=== PATIENT | male | born 1975 | race Caucasian/White ===

== ENCOUNTER 2020-11-02 19:34 | Emergency (ER) | payer OTHER, SELFPAY ==
[2020-11-02 19:35] VITALS: BP 121/82; PULSE 63; RESP 15; TEMP 36.4; O2SAT 97; BMI 26.5
--- NOTE | 2020-11-02 19:43 | CT_ITS ---
HISTORY: Flank pain EXAMINATION: CT Abdomen And Pelvis W/O Contrast Injection TECHNIQUE: Multiple axial images were obtained of the abdomen and pelvis without oral or IV contrast. A radiation dose optimization technique was used for this scan. IV Contrast dosage and agent: None. Oral contrast: None. COMPARISON: None FINDINGS: LOWER CHEST: Bibasilar dependent changes. No cardiomegaly or pericardial effusion. LIVER: Homogeneous. No focal mass. GALLBLADDER AND BILIARY TREE: No calcified gallstones. No gallbladder distension or wall edema. No intra- or extrahepatic biliary ductal dilation. PANCREAS: No focal cystic or solid mass. SPLEEN: Normal size without focal cystic or solid mass. ADRENAL GLANDS: No nodules. KIDNEYS AND URETERS: No nephrolithiasis. Left hydroureteronephrosis with 4 mm calculus in the distal left ureter 3 cm proximal to the UVJ. PERITONEUM: No ascites or free air. BOWEL: Normal appendix. No stomach or bowel distension. No focal inflammatory bowel wall changes. LYMPH NODES: No enlarged mesenteric or retroperitoneal lymph nodes. VESSELS: Aorta is non-dilated. URINARY BLADDER: Unremarkable. REPRODUCTIVE ORGANS: No pelvic masses. ABDOMINAL WALL: Small fat-containing umbilical hernia. BONES: No acute or aggressive abnormality. CT/Abdomen/Pelvis without Cont IMPRESSION: 4 mm partially obstructing distal left ureteral calculus. Individualized dose optimization techniques were used for this CT. at 2043 Reported and signed by: Tereso Lane MD Electronically Signed: Tereso Lane MD at 20:41 EDT Tel , Service support ,
--- NOTE | 2020-11-02 19:43 | EDS_ITS ---
HPI History of Present Illness Chief Complaint: Flank Pain Informant: patient and spouse/S.O. Narrative Narrative: 44-year-old male presents to the emergency department with sudden onset of flank pain this morning. He states he originally got up and urinated blood. He states that he developed a pain in the left lower abdomen rating to the flank. It was bearable until this evening when it became severe. He notes now he is having testicular pain. No clots in the urine. He notes nausea when the pain was severe. He has a strong family history of ureterolithiasis. PFSH PFSH no medical history Home Medications hydrocodone-acetaminophen 1 tab PO Q6H PRN PRN 3 Days #12 tablet 11/02/20 [Rx Last Taken Unknown] ketorolac 10 mg PO Q8H PRN 3 Days #9 tab 11/02/20 [Rx Last Taken Unknown] ondansetron 4 mg PO Q6H PRN PRN #10 tab 11/02/20 [Rx Last Taken Unknown] tamsulosin [Flomax] 0.4 mg PO QHS #7 cap 11/02/20 [Rx Last Taken Unknown] Allergy/AdvReac Type Severity Reaction Status Date / Time No Known Allergies Allergy Verified 11/02/20 19:34 Surgical History (Updated 11/02/20 @ 19:53 by Marquita Serrano) History of Achilles tendon repair no surgical history Social History (Updated 11/02/20 @ 19:[address] Elton Olea, ) Smoking Status: Never smoker substance use type: does not use ROS ROS ED Constitutional Constitutional ED: Denies chills or weight loss Eyes Eyes: Denies change in vision or diplopia ENT ENT ED: Denies ear pain, rhinorrhea or sore throat Cardiovascular Cardiovascular: Denies chest pain, orthopnea, palpitations or racing heartbeat Respiratory/Chest Respiratory/Chest: Denies cough, dyspnea or orthopnea Gastrointestinal Gastrointestinal: Reports abdominal pain and nausea; Denies diarrhea or vomiting Genitourinary Genitourinary ED: Reports hematuria and other Details: Testicular pain ; Denies dysuria or urinary frequency Musculoskeletal Musculoskeletal: Denies arthralgias or myalgias Integumentary Denies abscess or rash Neurologic Neurologic: Denies headache(s) or weakness Psychiatric Psychiatric: Denies anxiety, depression, suicidal ideation or suicidal thoughts Endocrine Endocrinology: Denies polydipsia, polyphagia or polyuria Allergic/Immunologic Allergic/Immunologic ED: Denies mouth swelling, tongue swelling or urticaria EXAM Physical Exam Const Vital Signs: 11/02/20 19:35 Temperature 97.6 F L Temperature Source Temporal Pulse Rate 63 Respiratory Rate 15 Blood Pressure 121/82 H Blood Pressure Mean 95 Pulse Ox 97 Oxygen Delivery Method Room Air Positive well nourished and well developed General Appearance ED: well developed HEENT Reports normocephalic, head/scalp atraumatic and moist mucous membranes Eyes PERRL and EOMs intact bilaterally Neck no lymphadenopathy, supple and no JVD Resp normal respiratory effort and clear to auscultation bilaterally Cardio regular rate, regular rhythm and no murmurs GI normal to inspection, nondistended, normoactive bowel sounds and non-tender Palpation: soft Back/Spine no CVA tenderness and normal ROM Extremity normal to inspection General Extremety ED: Negative for edema General Extremity: Negative for edema Neuro oriented x3 and CN's II-XII intact bilaterally Sensorium / Orientation: alert Motor Exam: strength 5/5 throughout Psych mental status grossly normal Mood & Affect: Negative for depressed or tearful Skin no rashes or lesions noted and no wounds MDM MDM MDM Narrative Medical decision making narrative: Patient received Toradol Zofran and fluids. White count 4.3 creatinine normal. Urinalysis shows no obvious infection. CT of the pelvis demonstrates a 4 mm distal ureteral stone on the left. Patient will be discharged home with pain and nausea medications. Instructions to return if worsening to follow-up with urology Lab Data Attestation: I reviewed the patient's lab results. Labs: Laboratory Results - last 24 hr 11/02/20 11/02/20 11/02/20 19:45 19:45 20:35 WBC 4.3 L RBC 4.77 Hgb 14.7 Hct 42.5 MCV 89.1 MCH 30.8 MCHC 34.6 RDW Std Deviation 38.7 RDW Coeff of Justyna 11.9 Plt Count 180 MPV 8.8 Immature Gran % (Auto) 0.500 Neut % (Auto) 57.3 Lymph % (Auto) 32.7 [place] % (Auto) 6.7 Eos % (Auto) 2.3 Baso % (Auto) 0.5 Absolute Neuts (auto) 2.5 Absolute Lymphs (auto) 1.41 Nucleated RBC % 0 Sodium 141 Potassium 3.5 Chloride 106 Carbon Dioxide 29.0 Anion Gap 6 BUN 16 Creatinine 0.92 Estim Creat Clear Calc 103.59 Est GFR (MDRD) Af Amer 114 Est GFR (MDRD) Non-Af 94 BUN/Creatinine Ratio 17.5 Glucose 130 H Calcium 8.8 Urine Color Yellow Urine Clarity Sl. Cloudy Urine pH 6.0 Ur Specific [place] 1.025 Urine Protein Negative Urine Glucose (UA) Normal Urine Ketones Negative Urine Occult Blood 50 H Urine Nitrite Negative Urine Bilirubin Negative Urine Urobilinogen Normal Ur Leukocyte Esterase Negative Urine RBC 0-5 SEEN Urine WBC 0 SEEN Ur Squamous Epith Cells 0-5 SEEN Urine Bacteria 0 SEEN Urine Mucus 0 SEEN Radiography Diagnostic Testing: Radiology Impression Abdomen/Pelvis CT 11/02/20 19:43 IMPRESSION: 4 mm partially obstructing distal left ureteral calculus. Individualized dose optimization techniques were used for this CT. at 2043 Reported and signed by: Tereso Lane MD Electronically Signed: Tereso Lane MD at 20:41 EDT Tel , Service support , Discharge Plan Triage Chief Complaint: Flank Pain ED Provider: Elton Olea Dx/Rx/DC Orders Clinical Impression: Ureterolithiasis, Abdominal pain, acute Instructions: ED Kidney Stone w/ Colic Prescriptions: New hydrocodone-acetaminophen [hydrocodone-acetaminophen] 1 TABLET tablet 1 tab PO Q6H PRN PRN (Reason: Pain) 3 Days Qty: 12 RF: 0 ondansetron [ondansetron] 4 MG tablet 4 mg PO Q6H PRN PRN (Reason: Nausea) Qty: 10 RF: 0 ketorolac 10 mg tablet 10 mg PO Q8H PRN (Reason: pain) 3 Days Qty: 9 RF: 0 tamsulosin [Flomax] 0.4 mg capsule 0.4 mg PO QHS Qty: 7 RF: 0 Primary Care Provider: Ar Evans Referrals: Ar Evans MD [Primary Care Provider] - Timothy Roper MD [STAFF PHYSICIAN] - 1 Week Disposition Disposition: Home, self care
[2020-11-02] MEDS: Ketorolac 30 MG/ML Syringe IV (19:50)
[2020-11-02] MEDS: Ondansetron 4 MG/2 ML Vial IV (19:50)
[2020-11-02] MEDS: 0.9% Normal Saline 1,000 ML 250 ML IV (19:50)
[2020-11-02 20:01] LABS: Absolute Lymphocyte Count 1.41 X10^3/uL (0.83-4.51); Absolute Neutrophil Count 2.5 X10^3/uL (2.0-7.7); Basophil# 0.02 X10^3/uL; Basophil% 0.5 % (0-1); Eosinophils% 2.3 % (0-5); Hematocrit 42.5 % (40-54); Hemoglobin 14.7 g/dL (13.0-16.5); Lymphocyte # 1.41 X10^3/ul (0.83-4.51); Lymphocyte % 32.7 % (19-41); Mean Corp Hgb Conc 34.6 g/dL (32-36); Mean Corpuscular Hgb 30.8 pg (27.0-32.0); Mean Corpuscular Volume 89.1 fL (80-94); Mean Platelet Vol. 8.8 fl (6.2-12.0); Monocyte# 0.29 X10^3/uL; Monocyte% 6.7 % (0-10); NRBC Flagged by Analyzer 0 % (0-5); Neutrophil # 2.47 X10^3/uL (2.7-7.7); Neutrophil % 57.3 % (47-70); Platelet Count 180 K/mm3 (150-450); RBC Distribution Width CV 11.9 % (11.6-14.6); RBC Distribution Width SD 38.7 fl (35.1-43.9); Red Blood Count 4.77 M/mm3 (4.6-6.2); White Blood Count 4.3 K/mm3 (4.4-11.0)
[2020-11-02 20:15] LABS: Anion Gap 6 (5-15); BUN 16 mg/dL (7-18); BUN/Creat Ratio 17.5 RATIO (10-20); Calcium,Total 8.8 mg/dL (8.5-10.1); Chloride 106 mmol/L (98-107); Creatinine, Serum 0.92 mg/dL (0.70-1.30); EST Glomerular Filtration Rate 94 mL/min (>60); Est Glom Filt Rate - Afr Amer 114 mL/min (>60); Estimated Creatinine Clearance 103.59 ml/min; Glucose 130 mg/dL (74-106); Potassium 3.5 mmol/L (3.5-5.1); Sodium Level 141 mmol/L (136-145)
[2020-11-02 20:41] LABS: Bacteria 0 SEEN /hpf (None Seen); Mucous, Urine 0 SEEN /hpf (<or=2+); White Blood Cells 0 SEEN /hpf (0-5)
[2020-11-02 20:43] LABS: Color, Urine Yellow (Yellow); Glucose, Dipstick Normal (Normal); Ketone-Dipstick Negative (Negative); Leukocyte Esterase-Dipstick Negative /ul (Negative); Nitrite-Dipstick Negative (Negative); Occult Blood-Urine 50 /ul (Negative); Protein-Dipstick Negative (Negative); Specific Gravity, Urine 1.025 (1.002-1.030); Urine Bilirubin Dipstick Negative (Negative); Urine Clarity Sl. Cloudy (Clear); Urine Urobilinogen Normal (Normal)
[2020-11-02 20:55] LABS: Red Blood Cells-Urine 0-5 SEEN /hpf (0-5); Squamous Epithelial Cells - UA 0-5 SEEN /hpf (0-5)
[2020-11-02 21:22] VITALS: BP 107/73; PULSE 56; RESP 16
== END 2020-11-02 21:56 | disposition home or self-care (01) ==
PROVIDERS: Emergency Provider Emergency Medicine; PCP Family Medicine
DX: N20.1 Calculus of ureter (principal)
CPT/HCPCS: 74176; 80048; 81001; 85025; 96361; 96374; 96375; 99283; J2405

== ENCOUNTER 2020-11-06 21:00 | Emergency (ER) | payer OTHER, SELFPAY ==
[2020-11-06 21:00] VITALS: BP 150/90; PULSE 59; RESP 16; TEMP 36.6; O2SAT 98; BMI 26.5
--- NOTE | 2020-11-06 21:10 | EX.ED.DYSGE1 ---
HPI History of Present Illness Chief Complaint: Flank Pain Informant: patient Onset/Context/Timing Onset: Days Context: Gradual Onset Timing: Waxes and wanes Current Severity: Severe Maximum Severity: Severe Narrative Narrative: Patient presents secondary to kidney stone pain. He was diagnosed with a 4 mm distal left ureter stone on Monday. Patient states he has had pain off and on throughout the week but worsened this evening after work. PFSH PFSH Medical History Kidney stones Non-smoker Home Medications hydrocodone-acetaminophen 1 tab PO Q6H PRN PRN 3 Days #12 tablet 11/02/20 [Rx Last Taken Unknown] ketorolac 10 mg PO Q8H PRN 3 Days #9 tab 11/02/20 [Rx Last Taken Unknown] ondansetron 4 mg PO Q6H PRN PRN #10 tab 11/02/20 [Rx Last Taken Unknown] tamsulosin [Flomax] 0.4 mg PO QHS #7 cap 11/02/20 [Rx Last Taken Unknown] hydrocodone-acetaminophen 1 tab PO Q6H PRN 3 Days #14 tab 11/06/20 [Rx Last Taken Unknown] ketorolac 10 mg PO Q8H PRN #14 tab 11/06/20 [Rx Last Taken Unknown] Allergy/AdvReac Type Severity Reaction Status Date / Time No Known Allergies Allergy Verified 11/06/20 21:02 Surgical History (Updated 11/02/20 @ 19:53 by Marquita Serrano) History of Achilles tendon repair no surgical history Social History Smoking Status: Never smoker substance use type: does not use ROS ROS ED Constitutional Constitutional ED: Denies chills or fever(s) Eyes Eyes: Denies change in vision ENT ENT ED: Denies sore throat Cardiovascular Cardiovascular: Denies chest pain Respiratory/Chest Respiratory/Chest: Denies cough or dyspnea Gastrointestinal Gastrointestinal: Reports abdominal pain; Denies diarrhea, nausea or vomiting Genitourinary Genitourinary ED: Denies dysuria Musculoskeletal Musculoskeletal: Denies back pain Integumentary Denies rash Neurologic Neurologic: Denies headache(s) or weakness Psychiatric Psychiatric: Denies anxiety or depression Endocrine Endocrinology: Denies polydipsia or polyuria Allergic/Immunologic Allergic/Immunologic ED: Denies urticaria EXAM Physical Exam Const Vital Signs: 11/06/20 21:00 11/06/20 22:51 11/06/20 23:04 Temperature 97.8 F 97.8 F Temperature Source Temporal Oral Pulse Rate 59 L 48 L 53 L Respiratory Rate 16 16 17 Blood Pressure 150/90 H 121/85 H 126/84 H Blood Pressure Mean 110 97 Pulse Ox 98 98 98 Oxygen Delivery Method Room Air Room Air 11/06/20 23:05 Temperature Temperature Source Pulse Rate 53 L Respiratory Rate 17 Blood Pressure 126/84 H Blood Pressure Mean 98 Pulse Ox 97 Oxygen Delivery Method Room Air Positive well nourished and well developed General Appearance ED: well developed HEENT Reports normocephalic and head/scalp atraumatic Eyes PERRL and EOMs intact bilaterally Neck supple Chest Wall inspection of chest normal and palpation of chest normal Resp normal respiratory effort and clear to auscultation bilaterally Cardio regular rate and regular rhythm GI Auscultation: hypoactive bowel sounds Palpation: soft and tender LLQ; Negative for guarding or rebound tenderness present Extremity normal to inspection Neuro oriented x3 and no sensory deficits noted Sensorium / Orientation: alert Motor Exam: strength 5/5 throughout Psych mental status grossly normal Skin no rashes or lesions noted MDM MDM MDM Narrative Medical decision making narrative: IV was established. BMP is obtained. Patient is given morphine, Toradol, Zofran, and IV fluids. Lab Data Attestation: I reviewed the patient's lab results. Labs: Laboratory Results - last 24 hr 11/06/20 21:10 Sodium 140 Potassium 3.4 L Chloride 106 Carbon Dioxide 28.0 Anion Gap 6 BUN 20 H Creatinine 1.29 Estim Creat Clear Calc 73.88 Est GFR (MDRD) Af Amer 77 Est GFR (MDRD) Non-Af 64 BUN/Creatinine Ratio 15.5 Glucose 108 H Calcium 8.9 Treatment and Re-Evaluation Comments:: Renal function is still within normal limits. I did review the CT scan from several days ago that revealed a 4 mm distal left ureter stone. On repeat evaluation patient's pain is much improved. He does feel comfortable going home. He only has a few tabs of pain medication left and will be given new prescriptions. He is encouraged to follow-up with Dr. Roper as soon as possible if pain does not subside this weekend. He is given return instructions. Discharge Plan Triage Chief Complaint: Flank Pain ED Provider: Maday Dumont Dx/Rx/DC Orders Clinical Impression: Ureterolithiasis Instructions: ED Kidney Stone w/ Colic Prescriptions: New ketorolac 10 mg tablet 10 mg PO Q8H PRN (Reason: pain) Qty: 14 RF: 0 hydrocodone-acetaminophen 5-325 mg tablet 1 tab PO Q6H PRN (Reason: pain) 3 Days Qty: 14 RF: 0 No Action hydrocodone-acetaminophen [hydrocodone-acetaminophen] 1 TABLET tablet 1 tab PO Q6H PRN PRN (Reason: Pain) 3 Days Qty: 12 RF: 0 ondansetron [ondansetron] 4 MG tablet 4 mg PO Q6H PRN PRN (Reason: Nausea) Qty: 10 RF: 0 ketorolac 10 mg tablet 10 mg PO Q8H PRN (Reason: pain) 3 Days Qty: 9 RF: 0 tamsulosin [Flomax] 0.4 mg capsule 0.4 mg PO QHS Qty: 7 RF: 0 Primary Care Provider: Ar Evans Referrals: Ar Evans MD [Primary Care Provider] - Disposition Disposition: Home, self care Discharge Date/Time: 11/06/20 23:14
[2020-11-06] MEDS: Morphine 4 MG/ML Syringe IV ×2 (21:20→23:08)
[2020-11-06] MEDS: 0.9% Normal Saline 1,000 ML 150 ML IV (21:21)
[2020-11-06] MEDS: Ondansetron 4 MG/2 ML Vial IV (21:21)
[2020-11-06] MEDS: Ketorolac 30 MG/ML Syringe IV (21:21)
[2020-11-06 21:33] LABS: Anion Gap 6 (5-15); BUN 20 mg/dL (7-18); BUN/Creat Ratio 15.5 RATIO (10-20); Calcium,Total 8.9 mg/dL (8.5-10.1); Chloride 106 mmol/L (98-107); Creatinine, Serum 1.29 mg/dL (0.70-1.30); EST Glomerular Filtration Rate 64 mL/min (>60); Est Glom Filt Rate - Afr Amer 77 mL/min (>60); Estimated Creatinine Clearance 73.88 ml/min; Glucose 108 mg/dL (74-106); Potassium 3.4 mmol/L (3.5-5.1); Sodium Level 140 mmol/L (136-145)
[2020-11-06 22:51] VITALS: BP 121/85; PULSE 48; RESP 16; TEMP 36.6; O2SAT 98
[2020-11-06 23:04] VITALS: BP 126/84; PULSE 53; RESP 17; O2SAT 98
[2020-11-06 23:05] VITALS: BP 126/84; PULSE 53; RESP 17; O2SAT 97
== END 2020-11-06 23:14 | disposition home or self-care (01) ==
PROVIDERS: Emergency Provider Emergency Medicine; PCP Family Medicine
DX: N20.1 Calculus of ureter (principal); Z87.442 Personal history of urinary calculi
CPT/HCPCS: 80048; 96361; 96374; 96375; 96376; 99283; J7030; A4216; J2405

== ENCOUNTER 2020-11-09 13:06 | Emergency (ER) | payer OTHER, SELFPAY ==
[2020-11-09 13:07] VITALS: BP 150/72; PULSE 71; RESP 22; TEMP 36.6; O2SAT 98; BMI 26.5
--- NOTE | 2020-11-09 13:20 | EX.ED.DYSGE1 ---
HPI History of Present Illness Chief Complaint: Flank Pain Informant: patient and spouse/S.O. Narrative Narrative: 44-year-old male was previously diagnosed with a distal 4 mm ureteral stone on the left on 02 September. He returned to the emergency department on 06 September. He states that pretty much since last ED visit he has had pain. He has been taking Flomax in addition to Toradol and [place]. He has an appointment today to see Dr. Roper. [facility] Medical History Kidney stones Non-smoker Home Medications hydrocodone-acetaminophen 1 tab PO Q6H PRN PRN 3 Days #12 tablet 11/02/20 [Rx Last Taken Unknown] ketorolac 10 mg PO Q8H PRN 3 Days #9 tab 11/02/20 [Rx Last Taken Unknown] ondansetron 4 mg PO Q6H PRN PRN #10 tab 11/02/20 [Rx Last Taken Unknown] tamsulosin [Flomax] 0.4 mg PO QHS #7 cap 11/02/20 [Rx Last Taken Unknown] docusate sodium [Colace] 100 mg PO BID #14 cap 11/09/20 [Rx Last Taken Unknown] hydrocodone-acetaminophen 1 tab PO Q6H PRN PRN 3 Days #12 tablet 11/09/20 [Rx Last Taken Unknown] tamsulosin 0.4 mg PO DAILY #7 capsule 11/09/20 [Rx Last Taken Unknown] Allergy/AdvReac Type Severity Reaction Status Date / Time No Known Allergies Allergy Verified 11/09/20 13:09 Surgical History History of Achilles tendon repair Social History Smoking Status: Never smoker substance use type: does not use ROS ROS ED Constitutional Constitutional ED: Denies chills or weight loss Eyes Eyes: Denies change in vision or diplopia ENT ENT ED: Denies ear pain, rhinorrhea or sore throat Cardiovascular Cardiovascular: Denies chest pain, orthopnea, palpitations or racing heartbeat Respiratory/Chest Respiratory/Chest: Denies cough, dyspnea or orthopnea Gastrointestinal Gastrointestinal: Denies abdominal pain, diarrhea, nausea or vomiting Genitourinary Genitourinary ED: Reports hematuria and other Details: Flank pain ; Denies dysuria or urinary frequency Musculoskeletal Musculoskeletal: Denies arthralgias or myalgias Integumentary Denies abscess or rash Neurologic Neurologic: Denies headache(s) or weakness Psychiatric Psychiatric: Denies anxiety, depression, suicidal ideation or suicidal thoughts Endocrine Endocrinology: Denies polydipsia, polyphagia or polyuria Allergic/Immunologic Allergic/Immunologic ED: Denies mouth swelling, tongue swelling or urticaria EXAM Physical Exam Narrative Exam Narrative: Patient is Const Vital Signs: 11/09/20 13:07 Temperature 97.9 F Temperature Source Temporal Pulse Rate 71 Respiratory Rate 22 H Blood Pressure 150/72 H Blood Pressure Mean 98 Pulse Ox 98 Oxygen Delivery Method Room Air Positive well nourished and well developed General Appearance ED: well developed HEENT Reports normocephalic, head/scalp atraumatic and moist mucous membranes Eyes PERRL and EOMs intact bilaterally Neck no lymphadenopathy, supple and no JVD Resp normal respiratory effort and clear to auscultation bilaterally Cardio regular rate, regular rhythm and no murmurs GI normal to inspection, nondistended, normoactive bowel sounds and non-tender Palpation: soft Back/Spine normal ROM Back/Spine Narrative: CVA tenderness Thoracic Spine / Upper Back: Negative for thoracic spinal tenderness Lumbar Spine / Lower Back: Negative for lumbar spinal tenderness Extremity normal to inspection General Extremety ED: Negative for edema General Extremity: Negative for edema Neuro oriented x3 and CN's II-XII intact bilaterally Sensorium / Orientation: alert Motor Exam: strength 5/5 throughout Psych mental status grossly normal Mood & Affect: Negative for depressed or tearful Skin no rashes or lesions noted and no wounds MDM MDM MDM Narrative Medical decision making narrative: Patient received Toradol and morphine and IV fluids. I spoke with Dr. Roper who came to the emergency department to evaluate the patient. He will be scheduled for surgery on Monday. EKG and Covid PCR will be obtained to help assist in that process. Once his pain is under control I will write for additional pain medication at home. Also write for stool softener and some additional Flomax. Lab Data Attestation: I reviewed the patient's lab results. Labs: Laboratory Results - last 24 hr 11/09/20 11/09/20 13:49 13:49 WBC 5.2 RBC 4.31 L Hgb 13.5 Hct 38.1 L MCV 88.4 MCH 31.3 MCHC 35.4 RDW Std Deviation 38.4 RDW Coeff of Justyna 11.9 Plt Count 172 MPV 8.7 Immature Gran % (Auto) 0.400 Neut % (Auto) 75.3 H Lymph % (Auto) 17.9 L [place] % (Auto) 5.4 Eos % (Auto) 0.8 Baso % (Auto) 0.2 Absolute Neuts (auto) 3.9 Absolute Lymphs (auto) 0.93 Nucleated RBC % 0 Sodium 144 Potassium 3.2 L Chloride 107 Carbon Dioxide 27.0 Anion Gap 10 BUN 15 Creatinine 1.08 Estim Creat Clear Calc 88.25 Est GFR (MDRD) Af Amer 94 Est GFR (MDRD) Non-Af 78 BUN/Creatinine Ratio 13.9 Glucose 106 Calcium 8.9 EKG Initial EKG: Attestation: I personally reviewed and interpreted this EKG as follows: Comments: EKG demonstrates a sinus bradycardia at a rate of 55. Discharge Plan Triage Chief Complaint: Flank Pain ED Provider: Elton Olea Dx/Rx/DC Orders Clinical Impression: Ureterolithiasis, Abdominal pain, acute Prescriptions: New hydrocodone-acetaminophen [hydrocodone-acetaminophen] 1 TABLET tablet 1 tab PO Q6H PRN PRN (Reason: Pain) 3 Days Qty: 12 RF: 0 tamsulosin [tamsulosin] 0.4 MG capsule 0.4 mg PO DAILY Qty: 7 RF: 0 docusate sodium [Colace] 100 mg capsule 100 mg PO BID Qty: 14 RF: 0 No Action hydrocodone-acetaminophen [hydrocodone-acetaminophen] 1 TABLET tablet 1 tab PO Q6H PRN PRN (Reason: Pain) 3 Days Qty: 12 RF: 0 ondansetron [ondansetron] 4 MG tablet 4 mg PO Q6H PRN PRN (Reason: Nausea) Qty: 10 RF: 0 ketorolac 10 mg tablet 10 mg PO Q8H PRN (Reason: pain) 3 Days Qty: 9 RF: 0 tamsulosin [Flomax] 0.4 mg capsule 0.4 mg PO QHS Qty: 7 RF: 0 Primary Care Provider: Ar Evans Referrals: Ar Evans MD [Primary Care Provider] - Timothy Roper MD [STAFF PHYSICIAN] - Keep [facility] appointment Disposition Disposition: Home, self care
[2020-11-09] MEDS: Ondansetron 4 MG/2 ML Vial IV (13:39)
[2020-11-09] MEDS: Morphine 4 MG/ML Syringe IV (13:40)
[2020-11-09] MEDS: Ketorolac 30 MG/ML Syringe IV (13:40)
[2020-11-09] MEDS: 0.9% Normal Saline 1,000 ML 250 ML IV (13:41)
[2020-11-09 13:57] LABS: Absolute Lymphocyte Count 0.93 X10^3/uL (0.83-4.51); Absolute Neutrophil Count 3.9 X10^3/uL (2.0-7.7); Basophil# 0.01 X10^3/uL; Basophil% 0.2 % (0-1); Eosinophil# 0.04 X10^3/uL; Eosinophils% 0.8 % (0-5); Hematocrit 38.1 % (40-54); Hemoglobin 13.5 g/dL (13.0-16.5); Lymphocyte # 0.93 X10^3/ul (0.83-4.51); Lymphocyte % 17.9 % (19-41); Mean Corp Hgb Conc 35.4 g/dL (32-36); Mean Corpuscular Hgb 31.3 pg (27.0-32.0); Mean Corpuscular Volume 88.4 fL (80-94); Mean Platelet Vol. 8.7 fl (6.2-12.0); Monocyte# 0.28 X10^3/uL; Monocyte% 5.4 % (0-10); NRBC Flagged by Analyzer 0 % (0-5); Neutrophil # 3.91 X10^3/uL (2.7-7.7); Neutrophil % 75.3 % (47-70); Platelet Count 172 K/mm3 (150-450); RBC Distribution Width CV 11.9 % (11.6-14.6); RBC Distribution Width SD 38.4 fl (35.1-43.9); Red Blood Count 4.31 M/mm3 (4.6-6.2); White Blood Count 5.2 K/mm3 (4.4-11.0)
[2020-11-09 14:07] LABS: Anion Gap 10 (5-15); BUN 15 mg/dL (7-18); BUN/Creat Ratio 13.9 RATIO (10-20); Calcium,Total 8.9 mg/dL (8.5-10.1); Chloride 107 mmol/L (98-107); Creatinine, Serum 1.08 mg/dL (0.70-1.30); EST Glomerular Filtration Rate 78 mL/min (>60); Est Glom Filt Rate - Afr Amer 94 mL/min (>60); Estimated Creatinine Clearance 88.25 ml/min; Glucose 106 mg/dL (74-106); Potassium 3.2 mmol/L (3.5-5.1); Sodium Level 144 mmol/L (136-145)
--- NOTE | 2020-11-09 14:08 | CON.PCM.UR_ITS ---
Assessment & Plan Assessment/Plan (1) Left ureteral calculus: PLAN: offered the patient surgery this coming Monday, he go home after is pain is control my office give him the set up for ureteroscopy laser and stent on the left side. HPI Consult Data Date of Consult: 11/09/20 HPI Narrative HPI Narrative: MAYKEL QUINN, is a 44 M who presents with a 4 mm stone in the distal left ureter on prior CAT scan he presented against the emergency room and severe pain is not been able to pass a stone PFSH Medical History Kidney stones Non-smoker Home Medications hydrocodone-acetaminophen 1 tab PO Q6H PRN PRN 3 Days #12 tablet 11/02/20 [Rx Last Taken Unknown] ketorolac 10 mg PO Q8H PRN 3 Days #9 tab 11/02/20 [Rx Last Taken Unknown] ondansetron 4 mg PO Q6H PRN PRN #10 tab 11/02/20 [Rx Last Taken Unknown] tamsulosin [Flomax] 0.4 mg PO QHS #7 cap 11/02/20 [Rx Last Taken Unknown] Allergy/AdvReac Type Severity Reaction Status Date / Time No Known Allergies Allergy Verified 11/09/20 13:09 Surgical History History of Achilles tendon repair Social History Smoking Status: Never smoker substance use type: does not use ROS Constitutional Constitutional: Denies chills, fever(s) or malaise Eyes Eyes: Denies blurry vision or change in vision ENT HEENT: Reports none Cardiovascular Cardiovascular: Denies chest pain or palpitations Respiratory/Chest Respiratory/Chest: Denies cough or shortness of breath with exertion Gastrointestinal Gastrointestinal: Denies abdominal pain, constipation or diarrhea Genitourinary Genitourinary: Reports systems reviewed and no addt'l complaints, except as documented Musculoskeletal Musculoskeletal: Denies back pain, joint stiffness or joint swelling Integumentary Integumentary: Denies dry skin, jaundice, lesions or rash Neurologic Neurologic: Denies confusion, syncope or weakness Psychiatric Psychiatric: Reports none; Denies anxiety or depression Endocrine Endocrinology: Denies excessive sweating, fatigue or flushing Hematologic/Lymphatic Hematologic/Lymphatic: Denies anemia, easy bleeding or easy bruising Physical Exam Const alert and oriented x3 General Appearance: cooperative HEENT normocephalic, head/scalp atraumatic, EAC's normal and TM's normal bilaterally Eyes PERRL and EOMs intact bilaterally Pupil: sluggish Neck no lymphadenopathy, supple and no JVD General: trachea midline Lymph Lymphatic: no lymphadenopathy noted, lymphedema and lymphadenopathy Resp normal respiratory effort, normal air movement and clear to auscultation bilaterally Cardio regular rate, regular rhythm and peripheral pulses 2+ throughout GI soft to palpation, non-tender and non-distended Extremity normal capillary refill and no clubbing, cyanosis or edema General Extremity: no tenderness to palpation of joints or extremities Skin no rashes or lesions noted General Skin Exam: turgor normal Lesions: no lesions Rashes: no rashes Neuro CN's II-XII intact bilaterally Speech: speech normal Motor Exam: strength 5/5 throughout; Negative for general weakness Psych thought process normal, cooperative and affect normal Appearance: appropriate Lab / Micro Data Result Diagrams: 11/09/20 13:49 11/09/20 13:49 Labs: Laboratory Results - last 24 hr 11/09/20 11/09/20 13:49 13:49 WBC 5.2 RBC 4.31 L Hgb 13.5 Hct 38.1 L MCV 88.4 MCH 31.3 MCHC 35.4 RDW Std Deviation 38.4 RDW Coeff of Justyna 11.9 Plt Count 172 MPV 8.7 Immature Gran % (Auto) 0.400 Neut % (Auto) 75.3 H Lymph % (Auto) 17.9 L [place] % (Auto) 5.4 Eos % (Auto) 0.8 Baso % (Auto) 0.2 Absolute Neuts (auto) 3.9 Absolute Lymphs (auto) 0.93 Nucleated RBC % 0 Sodium 144 Potassium 3.2 L Chloride 107 Carbon Dioxide 27.0 Anion Gap 10 BUN 15 Creatinine 1.08 Estim Creat Clear Calc 88.25 Est GFR (MDRD) Af Amer 94 Est GFR (MDRD) Non-Af 78 BUN/Creatinine Ratio 13.9 Glucose 106 Calcium 8.9
--- NOTE | 2020-11-09 14:31 | EKG12_ITS ---
Test Reason : FLANK PAIN Blood Pressure : / mmHG Vent. Rate : 055 BPM Atrial Rate : 055 BPM P-R Int : 206 ms QRS Dur : 092 ms QT Int : 416 ms P-R-T Axes : 033 058 -09 degrees QTc Int : 397 ms Sinus bradycardia Abnormal QRS-T angle, consider primary T wave abnormality Abnormal ECG No previous ECGs available Confirmed by DANGELO SANTANA, JENNIFER ([id number]), multimedia editor WILLIAM QUINN ([id number]) on 11/10/2020 2:14:11 PM Referred By: MACRINA Confirmed By:JENNIFER PIERSON MD
--- NOTE | 2020-11-09 14:40 | NURSING ---
NO OLD EKGS
[2020-11-09 15:00] VITALS: BP 135/82; PULSE 71; RESP 18; O2SAT 98
== END 2020-11-09 15:00 | disposition home or self-care (01) ==
PROVIDERS: Emergency Provider Emergency Medicine; PCP Family Medicine
DX: N20.1 Calculus of ureter (principal); Z20.822 Contact with and (suspected) exposure to COVID-19; Z79.899 Other long term (current) drug therapy; Z87.442 Personal history of urinary calculi
CPT/HCPCS: 80048; 85025; 87635; 93005; 96374; 96375; 99283; J7030; U0005; J2405; U0003

== ENCOUNTER 2020-11-10 18:07 | Observation (INO) | payer OTHER, SELFPAY ==
[2020-11-09 13:07] VITALS: BMI 26.5
[2020-11-10 18:08] VITALS: BP 130/71; PULSE 73; RESP 16; TEMP 37.1; O2SAT 97; BMI 26.6
[2020-11-10 19:14] VITALS: BP 138/80; PULSE 70
[2020-11-10 19:19] VITALS: BP 138/80; PULSE 68; RESP 16; TEMP 37.2; O2SAT 97
--- NOTE | 2020-11-10 19:20 | ED.VIS.GI ---
HPI HPI - GI History of Present Illness Chief Complaint: Flank Pain Informant: patient Narrative Narrative: Patient continues with left flank pain. He was seen here yesterday. He has been dealing with a kidney stone for a couple of months. Dr. Roper came into the emergency department and evaluated the patient. He was scheduled for surgery on Monday. However, today he developed a temperature of 100.3 ?F. He still continued to have pain. He did take Toradol and [place] at home but still had some pain. Dr. Roper directed him to the ED for further evaluation. PFSH PFSH Medical History Kidney stones Non-smoker Home Medications ketorolac 10 mg PO Q8H PRN 3 Days #9 tab 11/02/20 [Rx Last Taken Unknown] ondansetron 4 mg PO Q6H PRN PRN #10 tab 11/02/20 [Rx Last Taken Unknown] tamsulosin [Flomax] 0.4 mg PO QHS #7 cap 11/02/20 [Rx Last Taken Unknown] docusate sodium [Colace] 100 mg PO BID #14 cap 11/09/20 [Rx Last Taken Unknown] hydrocodone-acetaminophen 1 tab PO Q6H PRN PRN 3 Days #12 tablet 11/09/20 [Rx Last Taken Unknown] Allergy/AdvReac Type Severity Reaction Status Date / Time No Known Allergies Allergy Verified 11/10/20 18:08 Surgical History History of Achilles tendon repair Social History Smoking Status: Never smoker substance use type: does not use ROS ROS ED Constitutional Constitutional ED: Reports fever(s); Denies chills Eyes Eyes: Denies blurry vision, change in vision or diplopia ENT ENT ED: Denies ear pain, rhinorrhea or sore throat Cardiovascular Cardiovascular: Denies chest pain or palpitations Respiratory/Chest Respiratory/Chest: Denies cough, dyspnea or sputum Gastrointestinal Gastrointestinal: Denies abdominal pain, diarrhea, nausea or vomiting Genitourinary Genitourinary ED: Reports other Details: Flank pain Musculoskeletal Musculoskeletal: Denies back pain or neck pain Integumentary Denies change in pigmentation or rash Neurologic Neurologic: Denies headache(s), numbness or weakness Psychiatric Psychiatric: Denies anxiety or depression Endocrine Endocrinology: Denies polydipsia or polyuria EXAM Physical Exam Const Vital Signs: 11/10/20 18:08 11/10/20 19:14 Temperature 98.8 F Temperature Source Temporal Pulse Rate 73 70 Respiratory Rate 16 Blood Pressure 130/71 H 138/80 H Blood Pressure Mean 90 99 Pulse Ox 97 Oxygen Delivery Method Room Air Positive well nourished and well developed General Appearance ED: well developed and NAD HEENT Reports moist mucous membranes normocephalic and atraumatic; Negative for tenderness Eyes PERRL and EOMs intact bilaterally Neck supple and no JVD Chest Wall Chest: Negative for tenderness Resp normal respiratory effort and clear to auscultation bilaterally Effort and Inspection: Negative for respiratory distress Cardio regular rate, regular rhythm and no murmurs Rate: regular rate Rhythm: regular rhythm GI soft to palpation, non-tender and non-distended Palpation: soft Back/Spine no CVA tenderness and no thoracic nor lumbar tenderness Cervical Spine: Negative for cervical spine tenderness Extremity normal to inspection and full ROM General Extremety ED: Negative for tenderness Neuro oriented x3, CN's II-XII intact bilaterally and no sensory deficits noted Sensorium / Orientation: awake and alert Motor Exam: strength 5/5 throughout Psych mental status grossly normal Skin no rashes or lesions noted MDM MDM MDM Narrative Medical decision making narrative: I did call Dr. Roper upon the patient's arrival. He will admit the patient to the hospital. I will grab laboratory studies including a lactate and blood cultures. I gave him a dose of Rocephin as well as morphine. He will be admitted to the hospital for likely surgery tomorrow Discharge Plan Triage Chief Complaint: Flank Pain ED Provider: Tye Fragoso Dx/Rx/DC Orders Clinical Impression: Ureterolithiasis Prescriptions: No Action ondansetron [ondansetron] 4 MG tablet 4 mg PO Q6H PRN PRN (Reason: Nausea) Qty: 10 RF: 0 ketorolac 10 mg tablet 10 mg PO Q8H PRN (Reason: pain) 3 Days Qty: 9 RF: 0 tamsulosin [Flomax] 0.4 mg capsule 0.4 mg PO QHS Qty: 7 RF: 0 hydrocodone-acetaminophen [hydrocodone-acetaminophen] 1 TABLET tablet 1 tab PO Q6H PRN PRN (Reason: Pain) 3 Days Qty: 12 RF: 0 docusate sodium [Colace] 100 mg capsule 100 mg PO BID Qty: 14 RF: 0 Primary Care Provider: Ar Evans Referrals: Ar Evans MD [Primary Care Provider] - Disposition Disposition: Acute Care Hospital [facility]
[2020-11-10 19:27] VITALS: BP 138/80; PULSE 61; RESP 18; TEMP 37.2; O2SAT 98
[2020-11-10] MEDS: Morphine 4 MG/ML Syringe IV (19:29)
[2020-11-10 19:44] LABS: Absolute Neutrophil Count 4.7 X10^3/uL (2.0-7.7); Basophil# 0.02 X10^3/uL; Basophil% 0.3 % (0-1); Eosinophil# 0.05 X10^3/uL; Eosinophils% 0.8 % (0-5); Hematocrit 40.9 % (40-54); Lymphocyte % 13.2 % (19-41); Mean Corp Hgb Conc 34.2 g/dL (32-36); Mean Corpuscular Volume 90.5 fL (80-94); Mean Platelet Vol. 8.8 fl (6.2-12.0); Monocyte# 0.44 X10^3/uL; Monocyte% 7.3 % (0-10); NRBC Flagged by Analyzer 0 % (0-5); Neutrophil # 4.73 X10^3/uL (2.7-7.7); Neutrophil % 78.2 % (47-70); Platelet Count 204 K/mm3 (150-450); RBC Distribution Width SD 39.8 fl (35.1-43.9); Red Blood Count 4.52 M/mm3 (4.6-6.2); White Blood Count 6.1 K/mm3 (4.4-11.0)
[2020-11-10] MEDS: Ceftriaxone 1 GM/50 ML BAG IV (20:02)
[2020-11-10 20:12] LABS: ALB/GLOB Ratio 1.2 RATIO (0.9-2.4); AST(SGOT) 19 U/L (15-37); Alanine Aminotransfer ALT/SGPT 27 U/L (16-61); Albumin, Serum 3.8 g/dL (3.2-5.0); Alkaline Phosphatase 66 U/L (45-117); Anion Gap 6 (5-15); BUN 18 mg/dL (7-18); BUN/Creat Ratio 13.3 RATIO (10-20); Chloride 107 mmol/L (98-107); Creatinine, Serum 1.35 mg/dL (0.70-1.30); EST Glomerular Filtration Rate 60 mL/min (>60); Est Glom Filt Rate - Afr Amer 73 mL/min (>60); Globulin 3.2 g/dL (2.2-4.2); Glucose 97 mg/dL (74-106); Lactic Acid 0.7 mmol/L (0.4-1.9); Potassium 3.5 mmol/L (3.5-5.1); Sodium Level 143 mmol/L (136-145)
[2020-11-10 20:24] LABS: Bacteria 0 SEEN /hpf (None Seen); Mucous, Urine 0 SEEN /hpf (<or=2+); Squamous Epithelial Cells - UA 0 SEEN /hpf (0-5); White Blood Cells 0 SEEN /hpf (0-5)
[2020-11-10 20:25] LABS: Color, Urine Yellow (Yellow); Glucose, Dipstick Normal (Normal); Ketone-Dipstick Negative (Negative); Leukocyte Esterase-Dipstick Negative /ul (Negative); Nitrite-Dipstick Negative (Negative); Occult Blood-Urine 25 /ul (Negative); Protein-Dipstick Negative (Negative); Urine Bilirubin Dipstick Negative (Negative); Urine Clarity Clear (Clear); Urine Urobilinogen Normal (Normal)
[2020-11-10 20:37] LABS: Red Blood Cells-Urine 0-5 SEEN /hpf (0-5)
[2020-11-10 20:38] VITALS: BP 134/80; PULSE 68; RESP 18; O2SAT 97
[2020-11-10 21:01] VITALS: BMI 26.6
[2020-11-10 21:31] VITALS: BP 117/80; PULSE 57; RESP 16; TEMP 37.7; O2SAT 96
[2020-11-10 22:30] VITALS: BMI 26.6
[2020-11-10] MEDS: 0.9% Normal Saline 1,000 ML 75 ML IV (22:36)
[2020-11-11] VITALS (12 sets, daily range): BP systolic 103–121; BP diastolic 54–80; PULSE 53–84; RESP 14–16; TEMP 36.6–37.4; O2SAT 93–99
--- NOTE | 2020-11-11 | CALC_PTH ---
PATIENT: MAYKEL QUINN LOC: MS3 U#:[id number] AGE/SX: 44/M [place] [facility] [place]: Dr. Timothy Roper MD : 1975 BED: 1 DIS: 11/11/2020 SPEC #: [id number] RECD: 11/11/20 14:56 STATUS: KISHOR MCQUEEN #: [id number] LAINEY: 11/11/20 00:[address]: Timothy Roper DEPT: SURGICAL PATHOLOGY RECD BY: Ramiro Conde ENTERED: 11/12/20 07:42 SP TYPE: Calculi OTHR DR: Dr. Kenney Evans MD Tissues: CALCULI Procedures: Surgery Specimen Level I HEADER OPERATION: Cysto, ureteroscopy extraction of stone PRE-OP DIAGNOSIS: Left ureteral calculus TISSUE SUBMITTED: Left ureteral calculi GROSS DIAGNOSIS A fragment of stone, clinically left ureteral calculus. SJ:sridhar 11/13/2020 COMMENT The calculus is submitted in its entirety for chemical stone analysis. The results from this study will be reported separately. GROSS DESCRIPTION Received without fixative labeled with the patient's name and designated left ureteral calculi. The specimen consists of a fragment of escobar-light brown to black stone measuring 0.2 x 0.2 x 0.1 cm. The entire specimen is submitted for stone analysis. / DEBRA:sridhar 11/12/20 CPT: 52157
[2020-11-11] MEDS: Morphine 2 MG/ML Syringe IV ×2 (04:36→10:02)
[2020-11-11] MEDS: 0.9% Saline Lock 10 ML Syringe IV ×3 (04:37→10:02)
[2020-11-11] MEDS: Ketorolac 15 MG/ML Vial IV (07:00)
[2020-11-11] MEDS: 0.9% Normal Saline 1,000 ML 75 ML IV ×2 (10:02→14:17)
--- NOTE | 2020-11-11 10:21 | HP.PCM_ITS ---
HPI - General General Date of Admission: 11/10/20 HPI Yinka QUINN, is a 44 M who presents left flank pain 4 mm stone has failed to pass it conservatively has failed outpatient management PFSH Medical History Achilles rupture, right Kidney stones Non-smoker Home Medications ketorolac 10 mg PO Q8H PRN 3 Days #9 tab 11/02/20 [Rx Last Taken 11/10/20 17:00] ondansetron 4 mg PO Q6H PRN PRN #10 tab 11/02/20 [Rx Last Taken Unknown] hydrocodone-acetaminophen 1 tab PO Q6H PRN PRN 3 Days #12 tablet 11/09/20 [Rx Last Taken 11/10/20 17:00] docusate sodium [Colace] 100 mg PO BID 11/10/20 [History Last Taken 11/10/20 08:00] tamsulosin [Flomax] 0.4 mg PO QHS 11/10/20 [History Last Taken 11/09/20 22:00] Allergy/AdvReac Type Severity Reaction Status Date / Time No Known Allergies Allergy Verified 11/10/20 18:08 Surgical History (Updated 11/10/20 @ 22:30 by Kateryna Soler) H/O vasectomy History of Achilles tendon repair Social History Smoking Status: Never smoker substance use type: does not use Vital Signs Vital Signs Vital Signs: 11/10/20 18:08 11/10/20 19:14 11/10/20 19:19 Temperature 98.8 F 98.9 F Temperature Source Temporal Temporal Pulse Rate 73 70 68 Pulse Strength Respiratory Rate 16 16 Blood Pressure 130/71 H 138/80 H 138/80 H Blood Pressure Mean 90 99 99 Blood Pressure Source Blood Pressure Position Blood Pressure Location Pulse Ox 97 97 Oxygen Delivery Method Room Air Room Air 11/10/20 19:27 11/10/20 20:38 11/10/20 21:31 Temperature 98.9 F 99.9 F H Temperature Source Temporal Oral Pulse Rate 61 68 57 L Pulse Strength Respiratory Rate 18 18 16 Blood Pressure 138/80 H 134/80 H 117/80 Blood Pressure Mean 99 98 92 Blood Pressure Source Monitor Blood Pressure Position Semi-Fowlers Blood Pressure Location Left Arm Pulse Ox 98 97 96 Oxygen Delivery Method Room Air Room Air Room Air 11/11/20 00:44 11/11/20 04:43 11/11/20 08:30 Temperature 99.4 F H 98.2 F Temperature Source Oral Oral Pulse Rate 57 L 53 L Pulse Strength Normal (2+) Respiratory Rate 16 Blood Pressure 120/69 Blood Pressure Mean 86 Blood Pressure Source Monitor Blood Pressure Position Semi-Fowlers Blood Pressure Location Right Arm Pulse Ox 96 Oxygen Delivery Method Room Air 11/11/20 08:34 Temperature 97.8 F Temperature Source Oral Pulse Rate 53 L Pulse Strength Respiratory Rate 14 Blood Pressure 116/80 Blood Pressure Mean 92 Blood Pressure Source Monitor Blood Pressure Position Supine Blood Pressure Location Right Arm Pulse Ox 94 Oxygen Delivery Method Room Air Weight Weight: 84.1 kg Body Mass Index (BMI) 26.6 Physical Exam Const alert and oriented x3 General Appearance: cooperative HEENT normocephalic, head/scalp atraumatic, EAC's normal and TM's normal bilaterally Eyes PERRL and EOMs intact bilaterally Pupil: sluggish Neck no lymphadenopathy, supple and no JVD General: trachea midline Lymph Lymphatic: no lymphadenopathy noted, lymphedema and lymphadenopathy Resp normal respiratory effort, normal air movement and clear to auscultation bilaterally Cardio regular rate, regular rhythm and peripheral pulses 2+ throughout GI soft to palpation, non-tender and non-distended Extremity normal capillary refill and no clubbing, cyanosis or edema General Extremity: no tenderness to palpation of joints or extremities Skin no rashes or lesions noted General Skin Exam: turgor normal Lesions: no lesions Rashes: no rashes Neuro CN's II-XII intact bilaterally Speech: speech normal Motor Exam: strength 5/5 throughout; Negative for general weakness Psych thought process normal, cooperative and affect normal Appearance: appropriate Results Lab / Micro Data Result Diagrams: 11/10/20 19:30 11/10/20 19:30 Labs: Laboratory Results - last 24 hr 11/10/20 11/10/20 11/10/20 19:15 19:30 19:30 WBC 6.1 RBC 4.52 L Hgb 14.0 Hct 40.9 MCV 90.5 MCH 31.0 MCHC 34.2 RDW Std Deviation 39.8 RDW Coeff of [place] 12.0 Plt Count 204 MPV 8.8 Immature Gran % (Auto) 0.200 Neut % (Auto) 78.2 H Lymph % (Auto) 13.2 L [place] % (Auto) 7.3 Eos % (Auto) 0.8 Baso % (Auto) 0.3 Absolute Neuts (auto) 4.7 Absolute Lymphs (auto) 0.80 L Nucleated RBC % 0 Sodium 143 Potassium 3.5 Chloride 107 Carbon Dioxide 30.0 Anion Gap 6 BUN 18 Creatinine 1.35 H Estim Creat Clear Calc 70.60 Est GFR (MDRD) Af Amer 73 Est GFR (MDRD) Non-Af 60 BUN/Creatinine Ratio 13.3 Glucose 97 Lactic Acid Calcium 9.0 Total Bilirubin 0.60 AST 19 ALT 27 Alkaline Phosphatase 66 Total Protein 7.0 Albumin 3.8 Globulin 3.2 Albumin/Globulin Ratio 1.2 Urine Color Yellow Urine Clarity Clear Urine pH 7.0 Ur Specific [place] 1.010 Urine Protein Negative Urine Glucose (UA) Normal Urine Ketones Negative Urine Occult Blood 25 H Urine Nitrite Negative Urine Bilirubin Negative Urine Urobilinogen Normal Ur Leukocyte Esterase Negative Urine RBC 0-5 SEEN Urine WBC 0 SEEN Ur Squamous Epith Cells 0 SEEN Urine Bacteria 0 SEEN Urine Mucus 0 SEEN 11/10/20 19:30 WBC RBC Hgb Hct MCV MCH MCHC RDW Std Deviation RDW Coeff of [place] Plt Count MPV Immature Gran % (Auto) Neut % (Auto) Lymph % (Auto) [place] % (Auto) Eos % (Auto) Baso % (Auto) Absolute Neuts (auto) Absolute Lymphs (auto) Nucleated RBC % Sodium Potassium Chloride Carbon Dioxide Anion Gap BUN Creatinine Estim Creat Clear Calc Est GFR (MDRD) Af Amer Est GFR (MDRD) Non-Af BUN/Creatinine Ratio Glucose Lactic Acid 0.7 Calcium Total Bilirubin AST ALT Alkaline Phosphatase Total Protein Albumin Globulin Albumin/Globulin Ratio Urine Color Urine Clarity Urine pH Ur Specific [place] Urine Protein Urine Glucose (UA) Urine Ketones Urine Occult Blood Urine Nitrite Urine Bilirubin Urine Urobilinogen Ur Leukocyte Esterase Urine RBC Urine WBC Ur Squamous Epith Cells Urine Bacteria Urine Mucus Assessment & Plan Assessment/Plan (1) Left ureteral calculus: PLAN: Plan to proceed with cystoscopy left ureteroscopy basket extraction of stone or laser and stent on the left side. N.p.o. consent
--- NOTE | 2020-11-11 10:23 | PCM.DC ---
Discharge Instructions Diet Discharge Diet: No restrictions Activity Discharge Activity: Return to Normal Activity and May Not Drive (while taking narcotic pain medications.) Dressing / Incision Call your doctor if you observe: Fever of 101 or Higher Follow Up Care Please Follow Up With: Timothy Roper MD When: Call [phone] for an appointment Test Results: Test results from this visit will be discussed in further detail at your follow-up appointment, if applicable. Discharge Plan Admission Admit Date/Time: 11/10/20 20:01 Primary Reason for Your Visit: kidney stone Attending Provider: Timothy Roper Primary Care Provider: Ar Evans Instructions Patient Instructions: Treating Kidney Stones: Ureteroscopic Stone Removal Discharge Orders/Prescriptions Prescriptions: Continued ondansetron 4 MG tablet 4 mg PO Q6H PRN PRN (Reason: Nausea) Qty: 10 RF: 0 ketorolac 10 mg tablet 10 mg PO Q8H PRN (Reason: pain) 3 Days Qty: 9 RF: 0 hydrocodone-acetaminophen 1 TABLET tablet 1 tab PO Q6H PRN PRN (Reason: Pain) 3 Days Qty: 12 RF: 0 tamsulosin [Flomax] 0.4 mg capsule 0.4 mg PO QHS RF: 0 docusate sodium [Colace] 100 mg capsule 100 mg PO BID RF: 0 Referrals / Follow Up: Ar Evans MD [Primary Care Provider] - Timothy Roper MD [STAFF PHYSICIAN] -
--- NOTE | 2020-11-11 12:19 | NURSING ---
1205, PT OFF UNIT VIA BED FOR PROCEDURE. SPOUSE ACCOMPANIED PT
--- NOTE | 2020-11-11 13:19 | OP.PCM_ITS ---
Report of Operation Date of Procedure: 11/11/20 Pre-Operative Diagnosis: Left ureteral calculi Post-Operative Diagnosis: Same Surgery/Procedure Performed:: Cystoscopy, balloon dilation of the left ureter, left retrograde pyelogram, left ureteroscopy extraction of stone, no stent Description of Surgical Findings:: This is a patient who presents to the hospital for treatment for an obstructing distal ureter calculi. I discussed with the patient how the surgery would be performed and we reviewed the risks and benefits of the surgery. The risk and benefits include the risk of failure to remove the stone completely and that the patient may need multiple procedures. We discussed the risk of an infection, the risk of bleeding. We discussed the very rare risk of serious complicated injury to the ureter. The patient understands that if the stone is not able to be removed safely that we may abort the procedure and place a stent. After full discussion and all questions address with the patient the consent form was signed the side was marked appropriately and the patient was taken back to the operating room for the procedure. The patient was taken back to the operating room. After induction of anesthesia by the anesthesiology team the patient was placed in dorsolithotomy position. The genitals were prepped and draped in usual sterile fashion. I went into the bladder with a 21 [place] rigid cystourethroscope through the urethra. Upon entering the bladder I inspected the trigone the left and right ureteral orifice and the bladder itself. I then cannulated the left ureteral orifice and advanced a 0.038 Glidewire up into the kidney. Then over the Glidewire I advanced a 5 Fr Ureteral catheter and performed a retrograde pyelogram with about 10cc of contrast, to delineate the anatomy and identify the stone locati on. Then a ureteral balloon dilator was advanced over the wire and the distal ureter was balloon dilated with a 12 Fr x 5cm balloon dilator. After 3 minutes of dilating the ureter the balloon was backloaded off the 0.038 glidewire then the safety wire was left in place. I then placed a second 0.038 Guidewire as a working wire and over the working 0.038 guidewire I went in with the eran rigide 7.5fr ureteroscope. I was able to go inside with the 7.5Fr eran rigid utereroscope and I pulled out the working guidewire and then through the 7.5 fr simirigid ureteroscope extracted the stone in the distal ureter and stone sent for analysis. A retrograde pyelogram was performed with 10cc of contrast and no extravasation of contrast or perforation was identified in the ureter there was some mild irritation of the ureter where the stone was located. I then backed out of the ureter and then drained the patient's bladder and the cystoscope was removed and the patient was taken back to the recovery room in good position. The patient was given discharge instructions to call the office for instructions. Surgeon: Timothy Roper Drains: none Admit VTE Documentation VTE Present on Admission: No VTE Mechan Device Prophylaxis: SCD's
[2020-11-13] MEDS: 0.9% Normal Saline 1,000 ML 75 ML IV (13:18)
[2020-12-01 16:11] LABS: Source LEFT URETER
[2020-12-01 16:15] LABS: Size 3X3 mm
== END 2020-11-11 18:25 | disposition home or self-care (01) ==
LOC: ED 19:25 → MS3 11-11 06:31
PROVIDERS: Admitting Provider Urology; Emergency Provider Emergency Medicine; PCP Family Medicine; Visit Provider Urology
PROC: 0TJ98ZZ Inspection of Ureter, Via Natural or Artificial Opening Endoscopic (ICD-10-PCS; CPT 52352; principal; 2020-11-11 12:50)
DX: N20.1 Calculus of ureter (principal); Z87.442 Personal history of urinary calculi; Z79.899 Other long term (current) drug therapy
CPT/HCPCS: 52352; 36415; 76000; 80053; 81001; 82360; 83605; 85025; 87040; 87086; 88300; 96361; 96365; 96375; 96376; 99218; 99285; J7030; J7120; A4216; C1769; G0378; J2405